=== PATIENT | female | born 1985 | race Caucasian/White ===

== ENCOUNTER 2017-09-29 16:24 | Emergency (ER) | payer OTHER ==
[~2017-09-29] VITALS: Ht 162.6 cm; Wt 52.0 kg
[2017-09-29 17:01] LABS: BASOPHILS % 0.2 % (0.0-2.0); CHLORIDE 104 mEq/L (98-107); EOSINOPHILS % 0.1 % (0.0-5.0); HEMATOCRIT. 39.8 % (36.0-48.0); HEMOGLOBIN. 13.5 g/dL (12.0-16.0); LYMPHOCYTES % 8.5 % (20.0-50.0); MEAN CORPUSCULAR HEMOGLOBIN 30.6 pg (28.0-32.0); MEAN CORPUSCULAR VOLUME 90.4 fL (81.0-99.0); MEAN PLATELET VOLUME 9.2 fl (7.4-10.4); MONOCYTES % 8.6 % (2.0-8.0); NEUTROPHILS % 82.6 % (40.0-76.0); PLATELET 205 x1000/uL (130-400); RED BLOOD CELL COUNT 4.41 mill/uL (4.2-5.4); RED CELL DISTRIBUTION WIDTH 12.6 % (11.6-14.6)
[2017-09-29 17:03] LABS: PROTHROMBIN TIME 10.2 sec (9.4-11.6)
[2017-09-29] MEDS ORDERED: MAGNESIUM/ALUMINUM HYDROXIDE/SIMETHICONE 30ML UDC PO STA (19:37)
[2017-09-29] MEDS ORDERED: FAMOTIDINE 20MG TABLET PO ONE (19:45)
[2017-09-29] MEDS ORDERED: AZITHROMYCIN 500 MG TABLET PO ONE (19:45)
[2017-09-29] MEDS ORDERED: ONDANSETRON HCL 4MG TABLET PO ONE (19:45)
[2017-09-29] MEDS ORDERED: CEFTRIAXONE SODIUM 250 MG/VIAL IM ONE (19:45)
[2017-09-29] MEDS ORDERED: METRONIDAZOLE 500MG TABLET PO ONE (19:45)
[2017-09-29 19:54] LABS: CLARITY URINE CLEAR (CLEAR); COLOR URINE YELLOW (YELLOW); KETONES URINE 1+ (NEGATIVE); LEUKOCYTE ESTERASE URINE NEGATIVE (NEGATIVE); NITRITE URINE NEGATIVE (NEGATIVE); OCCULT BLOOD URINE NEGATIVE (NEGATIVE); PH URINE 5.5 (4.5-8.0); PROTEIN URINE NEGATIVE (NEGATIVE); SPECIFIC GRAVITY URINE 1.023 (1.005-1.030); UROBILINOGEN URINE 0.2 E.U./dL (0.2-1.0)
[2017-09-29 20:06] LABS: HCG SCREEN NEGATIVE
[2017-09-29 22:00] VITALS: BP 144/69
[2017-09-29] MEDS ORDERED: KETOROLAC 30MG/ML VIAL IM ONE (22:00)
[2017-09-29] MEDS ORDERED: FLUCONAZOLE 100MG TABLET PO ONE (22:00)
[2017-10-02 14:21] LABS: CHLAMYDIA TRACHOMATIS NAA Negative (Negative); NEISSERIA GONORRHOEAE NAA Negative (Negative)
== END 2017-09-29 22:46 | disposition home or self-care (01) ==
LOC: ER 16:24
DX: N72 Inflammatory disease of cervix uteri (principal); B37.3 Candidiasis of vulva and vagina; K21.9 Gastro-esophageal reflux disease without esophagitis; F12.90 Cannabis use, unspecified, uncomplicated; F17.210 Nicotine dependence, cigarettes, uncomplicated; Z71.6 Tobacco abuse counseling
CPT/HCPCS: 36415; 76705; 80053; 81003; 83690; 84703; 85025; 85610; 87210; 87491; 87591; 96372; 99285; 99406; J0696; J1885; Q0162